=== PATIENT | male | born 1970 | race Caucasian/White ===

== ENCOUNTER → 2023-02-21 12:19 | Outpatient (CLI) | payer OTHER, SELFPAY ==
--- NOTE | 2023-02-21 12:22 | DI.RAD.S_ITS ---
PROCEDURE: XR THORACIC SPINE 3V INDICATIONS: thoracic back pain TECHNIQUE: 3 views of the thoracic spine were acquired. COMPARISON: None. FINDINGS: Bones: No fractures or dislocations. No suspicious bony lesions. 12 pairs of ribs are noted, and appear intact where visualized. Mild multilevel disc height loss. Soft tissues: No paravertebral stripe thickening. IMPRESSION: Mild, multilevel degenerative disc disease. Dictated by: Vasile Guthrie M.D. on 02/21/2023 at 14:47 Approved by: Vasile Guthrie M.D. on 02/21/2023 at 14:47
== END ==
LOC: RAD 12:22
PROVIDERS: Referring Provider Anesthesiology; Visit Provider Anesthesiology
DX: M51.34 Other intervertebral disc degeneration, thoracic region (principal)
CPT/HCPCS: 72072

== ENCOUNTER → 2023-02-21 14:22 | Outpatient (CLI) | payer OTHER, SELFPAY ==
--- NOTE | 2023-02-21 14:25 | DI.RAD.S_ITS ---
PROCEDURE: XR LUMBAR SPINE MIN 4V INDICATIONS: low back pain TECHNIQUE: 5 views of the lumbar spine acquired, including flexion and extension views. COMPARISON: [facility], CR, XR LUMBAR SPINE 2 OR 3 VIEWS, 02/03/2022, 9:31. FINDINGS: Bones: 5 non=rib-bearing vertebrae are present. There is normal bony alignment. Mild levocurvature. No vertebral body compression fractures. No suspicious bony lesions. The multilevel degenerative disease as seen on the previous exam, moderate at L4-L5 and L5-S1, mild at other levels. Moderate facet arthropathy at L3-L4, L4-L5, L5-S1. Mild progression degenerative disc and facet disease compared to the last exam. Soft tissues: Overlying bowel gas pattern is normal. No suspicious soft tissue calcifications. Oblique views: No pars defects. IMPRESSION: 1. Multilevel degenerative disc and facet disease in lumbar spine, slightly worsened since the last exam. Dictated by: Osmin Phipps M.D. on 02/22/2023 at 8:29 Approved by: Osmin Phipps M.D. on 02/22/2023 at 8:32
--- NOTE | 2023-02-21 14:25 | DI.RAD.S_ITS ---
PROCEDURE: XR HIP W PEL IF DONE TRACEY MIN 4V INDICATIONS: Hip pain TECHNIQUE: AP pelvis with lateral view(s) of the right and left hip(s). COMPARISON: [facility], CR, XR PELVIS WITH BILATERAL LATERAL HIPS, 02/03/2022, 9:31. [facility], CR, XR LUMBAR SPINE MIN 4V, 02/21/2023, 14:25. FINDINGS: Bones: No fractures or dislocations. Pelvic ring appears intact. No suspicious bony lesions. Moderate degenerative joint disease in hips and sacroiliac joints bilaterally. Degenerative changes noted in the lower lumbar spine. Soft tissues: The visualized bowel gas pattern is normal. Calcific densities are most likely pelvic phleboliths. 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 Dictated by: Osmin Phipps M.D. on 02/22/2023 at 8:32 Approved by: Osmin Phipps M.D. on 02/22/2023 at 8:34
== END ==
LOC: RAD 14:23
PROVIDERS: PCP Family Medicine; Referring Provider Anesthesiology; Visit Provider Anesthesiology
DX: M51.34 Other intervertebral disc degeneration, thoracic region (principal); M51.36 Other intervertebral disc degeneration, lumbar region; M51.37 Other intervertebral disc degeneration, lumbosacral region; M47.816 Spondylosis without myelopathy or radiculopathy, lumbar region; M47.817 Spondylosis without myelopathy or radiculopathy, lumbosacral region; M54.50 Low back pain, unspecified; M25.559 Pain in unspecified hip
CPT/HCPCS: 72072; 72110; 73522

== ENCOUNTER → 2023-06-12 12:41 | Outpatient (CLI) | payer OTHER, SELFPAY ==
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
--- NOTE | 2023-06-12 12:43 | DI.MRI.S_ITS ---
PROCEDURE: MR LUMBAR SPINE WO CON INDICATIONS: Lumbar radiculopathy TECHNIQUE: Noncontrast sagittal T1 spin echo and T2 fast echo, sagittal STIR, and T2 fast spin echo through the lumbar spine. In cases with scoliosis, additional coronal T2 fast spin echo may be performed. COMPARISON: [facility], CR, XR LUMBAR SPINE MIN 4V, 02/21/2023, 14:25. FINDINGS: Image quality: Excellent. Alignment and Curvature: Mild straightening of the lumbar spine. Mild levocurvature of the lumbar spine, centered at L3-4. Bone Marrow: Small atypical vertebral hemangioma in L2 vertebral body. Marked fibrovascular end plate change at L5-S1. Spinal Cord: Conus medullaris terminates at the T12-L1 level. Visualized cord demonstrates normal signal and size. Paraspinous Soft Tissues: No paravertebral masses. T12-L1: Unremarkable L1-2: Unremarkable L2-3: Unremarkable L3-4: Unremarkable L4-5: Disc bulge with annular fissure. No central canal stenosis. No neural foraminal stenosis. L5-S1: Disc bulge. Mild bilateral facet arthropathy. No central canal stenosis. Mild right and left neural foraminal stenosis. Visualized sacrum is unremarkable. Other soft tissues findings: No abdominal aortic aneurysm. IMPRESSION: Multilevel degenerative changes of the lumbar spine, most pronounced at L5-S1, where there is mild bilateral neural foraminal stenosis. Dictated by: Ophelia Bucio M.D. on 06/12/2023 at 14:55 Approved by: Ophelia Bucio M.D. on 06/12/2023 at 15:01
== END ==
LOC: MRI 12:42
PROVIDERS: PCP Family Medicine; Referring Provider Anesthesiology; Visit Provider Anesthesiology
DX: M76.02 Gluteal tendinitis, left hip (principal); M47.27 Other spondylosis with radiculopathy, lumbosacral region; M48.07 Spinal stenosis, lumbosacral region; M25.552 Pain in left hip
CPT/HCPCS: 72148; 73721